=== PATIENT | female | born 1955 | race Caucasian/White ===

== ENCOUNTER 2017-06-13 12:56 | Emergency (ER) | payer BC ==
[2017-06-13] MEDS ORDERED: SODIUM CHLORIDE 0.9% 1,000 ML IV STA (13:37)
[2017-06-13] MEDS ORDERED: ACETAMINOPHEN TAB 500 MG TAB PO STA (13:37)
[2017-06-13] MEDS ORDERED: IBUPROFEN 600 MG TAB PO STA (13:37)
--- NOTE | 2017-06-13 13:52 | ED ---
General Adult HPI - General Chief complaint: Upper Respiratory Infection Stated complaint: Dizziness/Fever Time Seen by Provider: 06/13/17 13:30 Source: patient, family, RN notes reviewed Mode of arrival: wheelchair Limitations: no limitations - History of Present Illness Initial comments: 61 yo female presents to the emergency Department chief complaint of cough and congestion. Patient states that she has been sick since Sunday. Patient states she has had the cough with congestion. On and off fever and chills. She denies any nausea or vomiting. They were concerned due to the continued symptoms so they thought that they should be seen. Patient denies any recent back pain, abdominal pain, nausea vomiting, numbness or tingling, dysuria or hematuria, constipation or diarrhea, headaches or visual changes, or any other current symptoms. - Related Data Home Medications Medication Instructions Recorded Confirmed Dicyclomine [Bentyl] 10 mg PO RT-QID 10/21/14 06/13/17 CLIDINIUM-chlordiazePOXIDE [Librax] 1 - 2 cap PO AC-TID 10/23/14 06/13/17 Diphenox-Atrop 2.5-0.025 mg 1 tab PO QID PRN 03/29/16 06/13/17 [Lomotil] ALPRAZolam [Xanax] 1 mg PO TID PRN 06/13/17 06/13/17 Ibuprofen [Motrin Ib] 800 mg PO Q6H PRN 06/13/17 06/13/17 Omeprazole 20 mg PO AC-BID 06/13/17 06/13/17 guaiFENesin [Mucinex] 600 mg PO Q12H PRN 06/13/17 06/13/17 Allergies Allergy/AdvReac Type Severity Reaction Status Date / Time adhesive Allergy Unknown Hives, Verified 06/13/17 13:35 Itching Review of Systems ROS Statement: Those systems with pertinent positive or pertinent negative responses have been documented in the HPI. ROS Other: All systems not noted in ROS Statement are negative. Past Medical History Past Medical History: Cancer, Pneumonia Additional Past Medical History / Comment(s): HAYFEVER, OSTEOPOROSIS, SPONDYLOSIS, BULDGING DISCS., HX OF CERVICAL CA, MICROSCOPIC COLITIS., History of Any Multi-Drug Resistant Organisms: None Reported Past Surgical History: Cholecystectomy Additional Past Surgical History / Comment(s): BREAST LUMPECTOMYS. Past Anesthesia/Blood Transfusion Reactions: No Reported Reaction Additional Past Anesthesia/Blood Transfusion Reaction / Comment(s): STATES VERY SLEEPY AFTERWARDS. Past Psychological History: Anxiety Smoking Status: Former smoker Past Alcohol Use History: None Reported Past Drug Use History: None Reported - Past Family History Mother Family Medical History: Cancer Additional Family Medical History / Comment(s): STOMACH CA Sister(s) Family Medical History: Cancer Additional Family Medical History / Comment(s): FROM BREAST CA General Exam - General Exam Comments Initial Comments: General: The patient is awake and alert, in no distress, and does not appear acutely ill. Eye: Pupils are equal, round and reactive to light, extra-ocular movements are intact; there is normal conjunctiva bilaterally. No signs of icterus. Ears, nose, mouth and throat: There are moist mucous membranes. Neck: The neck is supple, there is no tenderness. Cardiovascular: There is a regular rate and rhythm. No murmur, rub or gallop is appreciated. Respiratory: Lungs are clear to auscultation, respirations are non-labored, breath sounds are equal. No wheezes, stridor, rales, or rhonchi. Gastrointestinal: Soft, non-distended, non-tender abdomen without masses or organomegaly noted. There is no rebound or guarding present. No CVA tenderness. Bowel sounds are unremarkable. Back: There is no tenderness to palpation in the midline. There is no obvious deformity. No rashes noted. Musculoskeletal: Normal ROM, no tenderness, There is no pedal edema. There is no calf tenderness or swelling. Sensation intact. Pulses equal bilaterally 2+. Neurological: CN II-XII intact, There are no obvious motor or sensory deficits. Coordination appears grossly intact. Speech is normal. Skin: Skin is warm and dry and no rashes or lesions are noted. Psychiatric: Cooperative, appropriate mood & affect, normal judgment. Limitations: no limitations Course Vital Signs 06/13/17 13:04 Temperature 99.4 F Pulse Rate 113 H Respiratory 18 Rate Blood Pressure 137/70 O2 Sat by Pulse 96 Oximetry Medical Decision Making - Medical Decision Making 61 yo female presents to the ER with cc of congestion and fever. At this time patient's testing has been reviewed and she is positive for influenza A. Chest x-ray is negative. At this time we did hydrate the patient and give her Motrin and Tylenol. She is out of the window for treatment with Tamiflu. At this time we did discuss follow-up we did discuss alf. We did discuss return parameters all questions. Patient stated she understood and she is in agreement this plan. At this time she will be discharged. - Lab Data Result diagrams: 06/13/17 13:57 06/13/17 13:57 Lab Results 06/13/17 06/13/17 06/13/17 Range/Units 13:57 13:57 13:57 WBC 10.7 H (3.8-10.6) k/uL RBC 4.78 (3.80-5.40) m/uL Hgb 14.3 (11.4-16.0) gm/dL Hct 43.7 (34.0-46.0) % MCV 91.6 (80.0-100.0) fL MCH 29.9 (25.0-35.0) pg MCHC 32.7 (31.0-37.0) g/dL RDW 13.6 (11.5-15.5) % Plt Count 203 (150-450) k/uL Neutrophils % 79 % Lymphocytes % 13 % Monocytes % 5 % Eosinophils % 2 % Basophils % 1 % Neutrophils # 8.4 H (1.3-7.7) k/uL Lymphocytes # 1.4 (1.0-4.8) k/uL Monocytes # 0.5 (0-1.0) k/uL Eosinophils # 0.2 (0-0.7) k/uL Basophils # 0.1 (0-0.2) k/uL Sodium 137 (137-145) mmol/L Potassium 4.5 (3.5-5.1) mmol/L Chloride 104 (98-107) mmol/L Carbon Dioxide 22 (22-30) mmol/L Anion Gap 11 mmol/L BUN 26 H (7-17) mg/dL Creatinine 0.70 (0.52-1.04) mg/dL Est GFR (MDRD) Af Amer >60 (>60 ml/min/1.73 sqM) Est GFR (MDRD) Non-Af >60 (>60 ml/min/1.73 sqM) Glucose 105 H (74-99) mg/dL Plasma Lactic Acid Tom 1.4 (0.7-2.0) mmol/L Calcium 9.3 (8.4-10.2) mg/dL Total Bilirubin 0.4 (0.2-1.3) mg/dL AST 20 (14-36) U/L ALT 44 (9-52) U/L Alkaline Phosphatase 173 H (38-126) U/L Total Protein 7.8 (6.3-8.2) g/dL Albumin 4.3 (3.5-5.0) g/dL Influenza Type A RNA (Not Detectd) Influenza Type B (PCR) (Not Detectd) 06/13/17 Range/Units 14:01 WBC (3.8-10.6) k/uL RBC (3.80-5.40) m/uL Hgb (11.4-16.0) gm/dL Hct (34.0-46.0) % MCV (80.0-100.0) fL MCH (25.0-35.0) pg MCHC (31.0-37.0) g/dL RDW (11.5-15.5) % Plt Count (150-450) k/uL Neutrophils % % Lymphocytes % % Monocytes % % Eosinophils % % Basophils % % Neutrophils # (1.3-7.7) k/uL Lymphocytes # (1.0-4.8) k/uL Monocytes # (0-1.0) k/uL Eosinophils # (0-0.7) k/uL Basophils # (0-0.2) k/uL Sodium (137-145) mmol/L Potassium (3.5-5.1) mmol/L Chloride (98-107) mmol/L Carbon Dioxide (22-30) mmol/L Anion Gap mmol/L BUN (7-17) mg/dL Creatinine (0.52-1.04) mg/dL Est GFR (MDRD) Af Amer (>60 ml/min/1.73 sqM) Est GFR (MDRD) Non-Af (>60 ml/min/1.73 sqM) Glucose (74-99) mg/dL Plasma Lactic Acid Tom (0.7-2.0) mmol/L Calcium (8.4-10.2) mg/dL Total Bilirubin (0.2-1.3) mg/dL AST (14-36) U/L ALT (9-52) U/L Alkaline Phosphatase (38-126) U/L Total Protein (6.3-8.2) g/dL Albumin (3.5-5.0) g/dL Influenza Type A RNA Not Detected (Not Detectd) Influenza Type B (PCR) Detected H (Not Detectd) - Radiology Data Radiology results: report reviewed, image reviewed Disposition Clinical Impression: Influenza B Disposition: HOME SELF-CARE Condition: Stable Instructions: Influenza (ED) Additional Instructions: Please use medication as discussed. Please follow up with family doctor if symptoms have not improved over the next two days. Please return to the emergency room if your symptoms increase or worsen or for any other concerns. Referrals: Donta Vizcaino DO [Primary Care Provider] - 1-2 days Time of Disposition: 14:53
[2017-06-13 14:15] LABS: Basophils # (A) 0.1 k/uL (0-0.2); Basophils % (A) 1 %; Eosinophils # (A) 0.2 k/uL (0-0.7); Eosinophils % (A) 2 %; HCT 43.7 % (34.0-46.0); HGB 14.3 gm/dL (11.4-16.0); Lymphocytes # (A) 1.4 k/uL (1.0-4.8); Lymphocytes % (A) 13 %; MCH 29.9 pg (25.0-35.0); MCHC 32.7 g/dL (31.0-37.0); MCV 91.6 fL (80.0-100.0); Mean Platelet Volume 8.2; Monocytes # (A) 0.5 k/uL (0-1.0); Monocytes % (A) 5 %; Neutrophils # (A) 8.4 k/uL (1.3-7.7); Neutrophils % (A) 79 %; Platelet Count 203 k/uL (150-450); RBC 4.78 m/uL (3.80-5.40); RDW 13.6 % (11.5-15.5); WBC 10.7 k/uL (3.8-10.6)
[2017-06-13 14:25] LABS: ALT 44 U/L (9-52); AST 20 U/L (14-36); Albumin 4.3 g/dL (3.5-5.0); Alkaline Phosphatase 173 U/L (38-126); Anion Gap 11 mmol/L; Blood Urea Nitrogen 26 mg/dL (7-17); Calcium 9.3 mg/dL (8.4-10.2); Carbon Dioxide 22 mmol/L (22-30); Chloride 104 mmol/L (98-107); Glucose 105 mg/dL (74-99); Potassium 4.5 mmol/L (3.5-5.1); Sodium 137 mmol/L (137-145); Total Bilirubin 0.4 mg/dL (0.2-1.3); Total Protein 7.8 g/dL (6.3-8.2)
--- NOTE | 2017-06-13 14:28 | XR ---
EXAMINATION TYPE: XR chest 2V DATE OF EXAM: 06/13/2017 COMPARISON: 04/26/2011, TECHNIQUE: PA and lateral views submitted. HISTORY: Cough FINDINGS: The lungs are clear and there is no pneumothorax, pleural effusion, or focal pneumonia. Biapical pl eural thickening. Atherosclerotic change aorta. Hypertrophic change AC joints. Mild degenerative carney ge of the vertebral column. IMPRESSION: 1. No acute process.
[2017-06-13 15:03] VITALS: BP 137/66; PULSE 104; RESP 20; TEMP 100.5
== END 2017-06-13 15:11 | disposition home or self-care (01) ==
LOC: EC 12:56
DX: J10.1 Influenza due to other identified influenza virus with other respiratory manifestations (principal); Z87.891 Personal history of nicotine dependence; Z79.899 Other long term (current) drug therapy; Z91.09 Other allergy status, other than to drugs and biological substances
CPT/HCPCS: 36415; 71046; 80053; 83605; 85025; 87040; 87502; 96360; 99283

== ENCOUNTER → 2017-11-01 | Outpatient (CLI) | payer BC ==
--- NOTE | 2017-11-01 14:22 | BD ---
EXAMINATION TYPE: Axial Bone Density DATE OF EXAM: 11/01/2017 COMPARISON: NONE CLINICAL HISTORY: 62-year-old female osteoarthritis, postmenopausal screening Height: 5 FT 4 IN Weight: 201 FRAX RISK QUESTIONS: Secondary Osteoporosis: Rheumatoid Arthritis: YES RISK FACTORS HISTORY OF: Family History of Osteoporosis: YES Diet low in dairy products/other sources of calcium: Postmenopausal woman: JOSE FRANCISCO AGE 35 UTERINE CANCER NO TX Lost more than 2 inches in height since high school: YES MEDICATIONS: Additional Medications: BENTYL,OMEPRAZOLE,LIBRAX, XANAX, Additional History: HISTORY OF JUVENILE RHEUMATOID ARTHRITIS EXAM MEASUREMENTS: Bone mineral densitometry was performed using the [employer] System. Bone mineral density as measured about the Lumbar spine is: ----- L1-L4(G/cm2): 1.026 T Score Values are as follows: ----- L2: -1.2 ----- L3: -0.6 ----- L4: -1.1 ----- L1-L4: -1.3 Bone mineral density has: INCREASED 19.5 % since study of: 2010 Bone mineral density about the R hip (g/cm2): 0.664 Bone mineral density about the L hip (g/cm2): 0.729 T Score values are as follows: -----R Neck: -2.7 -----L Neck: -2.2 -----R Total: -1.6 -----L Total: -1.9 Bone mineral density has: INCREASED 3.8 % since study of: 2010 IMPRESSION: Osteoporosis (T Score less than -2.5). There is increased fracture risk and therapy is usually indicated based on age. Re-Screen 1-2 years. NOTE: T-SCORE=SD OF THE YOUNG ADULT MEAN.
--- NOTE | 2017-11-05 07:59 | MM ---
Reason for exam: additional evaluation requested from prior study. Last mammogram was performed 1 year and 7 months ago. History: Patient is postmenopausal and has history of endometrial cancer at age 35. Family history of breast cancer in sister at age 43 and breast cancer in paternal grandmother. Benign US biopsy breast VAD LT of the left breast, March 22, 2016. Benign US biopsy breast add'l VAD LT of the left breast, March 22, 2016. Benign cyst aspiration of the left breast, 2007. Excisional biopsy of the left breast, 1979. Excisional biopsy of the right breast, 1979. Took hormonal contraceptives for 1 year. Physical Findings: Nurse Summary: 1.5cm nodule in the left breast at 2/3 o'clock (nurse kp). MG Diagnostic Mammo w CAD DEVORAH Bilateral CC and MLO view(s) were taken. Prior study comparison: March 22, 2016, left breast MG diagnostic mammo LT wo CAD. March 02, 2016, bilateral MG 3d screening mammo w/cad. There are scattered fibroglandular densities. Previous mammotome biopsy in the left breast x 2. There is chronic nodularity bilaterally. Palpable marker lateral left breast. Patient reports that the palpable area is not new and has been biopsied previously. No change in the left nodularity and biopsy clips. These results were verbally communicated with the patient and result sheet given to the patient on 11/01/17. ASSESSMENT: Benign, BI-RAD 2 RECOMMENDATION: Routine screening mammogram of both breasts in 1 year. EDUAR
== END | disposition home or self-care (01) ==
LOC: RADMAMWWP 13:10
PROVIDERS: ATTEND Family Medicine
DX: R92.2 Inconclusive mammogram (principal); M81.0 Age-related osteoporosis without current pathological fracture
CPT/HCPCS: 77066; 77080

== ENCOUNTER → 2020-11-04 | Outpatient (CLI) | payer MEDICARE ==
--- NOTE | 2020-11-05 09:28 | MR ---
EXAMINATION TYPE: MR lumbar spine wo con DATE OF EXAM: 11/04/2020 COMPARISON: Vein film 10/08/2020 HISTORY: Low back pain into right and left leg for 5 months. TECHNIQUE: Multiplanar, multisequence images of the lumbar spine were acquired. L1-L2: Posterior broad-based disc bulge causes slight anterior mass effect on the thecal sac. No sign ificant foraminal encroachment. L2-L3: Posterior extension of endplate disc complex causes mild anterior mass effect on the thecal sa c. There is facet arthropathy with hypertrophy ligamentum flavum causing some minimal posterior later al mass effect on the thecal sac. No significant foraminal encroachment. L3-L4: Normal disc appearance without desiccation. No herniation, protrusion or disc bulging. No ca nal stenosis is present. Foramina are patent bilaterally. There is some facet arthropathy change. L4-L5: There is a posterior broad-based disc bulge causing mild anterior mass effect on the thecal sa c. Facet arthropathy changes present with hypertrophy ligamentum flavum causing posterior lateral mas s effect on the thecal sac, there is encroachment on the lateral recess on the right. Listhesis contr ibutes to cause foraminal encroachment, circumferential extension of endplate disc complex causes gre ater foraminal encroachment on the right than on the left. L5-S1: Posterior disc bulge effaces the anterior thecal sac, possible contact proximal S1 nerve roots . There is some facet arthropathy change. Circumferential extension endplate disc complex encroaches minimally on the inferior aspect of the foramina on the right, greater on the left. Lumbar segments are intact. No paraspinal masses are identified. Conus medullaris has a normal appe arance and is present at L1. Anterolisthesis grade 1 L4-5 as noted on plain film, there is vacuum phe nomenon at L4-5, endplate discogenic marrow signal change is present at multiple levels but most exte nsive at L4-5. Loss of disc height also present L5-S1, L2-3 with associated vacuum phenomenon. There is multilevel spondylosis. Lumbar vertebral bodies show preserved height. Minimal retrolisthesis grad e 1 L2-3. No evident spinal stenosis. Hemangioma suspected in the T12 vertebral body, T1 and T2 brigh t signal is present. There are small parapelvic cysts associated with the left kidney. IMPRESSION: Generative disc disease, spondylolisthesis, facet arthropathy, foraminal encroachment. No significant spinal stenosis.
== END | disposition home or self-care (01) ==
LOC: RADMRIMAIN 12:25
PROVIDERS: ATTEND Orthopaedic Surgery
DX: M51.16 Intervertebral disc disorders with radiculopathy, lumbar region (principal); M43.16 Spondylolisthesis, lumbar region; M47.26 Other spondylosis with radiculopathy, lumbar region
CPT/HCPCS: 72148

== ENCOUNTER → 2021-04-26 | Outpatient (CLI) | payer MEDICARE, BC ==
[2021-04-26 19:24] LABS: Calcium 9.9 mg/dL (8.7-10.3)
== END | disposition home or self-care (01) ==
LOC: LABWHC1 11:22
DX: M81.0 Age-related osteoporosis without current pathological fracture (principal)
CPT/HCPCS: 36415; 82306; 82310; 83970

== ENCOUNTER → 2023-01-16 | Outpatient (CLI) | payer MEDICARE, BC ==
--- NOTE | 2023-01-16 13:47 | XR ---
EXAMINATION TYPE: XR chest 2V DATE OF EXAM: 01/16/2023 COMPARISON: 06/13/2017 HISTORY: Pneumonia. TECHNIQUE: Frontal and lateral views of the chest are obtained. FINDINGS: There is no focal air space opacity, pleural effusion, or pneumothorax seen. The cardiac silhouette size is within normal limits. The osseous structures are intact. IMPRESSION: No acute cardiopulmonary process.
== END | disposition home or self-care (01) ==
LOC: RADXRMAIN 13:04
PROVIDERS: ATTEND Family Medicine
DX: J18.9 Pneumonia, unspecified organism (principal)
CPT/HCPCS: 71046